=== PATIENT | female | born 1980 | race African-American/Black ===

== ENCOUNTER 2017-01-17 06:28 | Emergency (ER) | payer MEDICAID ==
[~2017-01-17] VITALS: Ht 165.1 cm; Wt 57.0 kg
[2017-01-17] MEDS ORDERED: KETOROLAC 60MG/2ML VIAL IM ONE (08:30)
[2017-01-17 08:55] VITALS: BP 132/70
== END 2017-01-17 08:57 | disposition home or self-care (01) ==
LOC: ER 06:36
DX: R51 Headache (principal); M79.602 Pain in left arm; J45.909 Unspecified asthma, uncomplicated; R56.9 Unspecified convulsions; F16.10 Hallucinogen abuse, uncomplicated; F14.10 Cocaine abuse, uncomplicated; F17.200 Nicotine dependence, unspecified, uncomplicated
CPT/HCPCS: 70450; 73090; 81025; 96372; 99284; J1885; Z7610

== ENCOUNTER 2017-03-12 21:49 | Emergency (ER) | payer MEDICAID ==
[~2017-03-12] VITALS: Ht 170.2 cm; Wt 61.0 kg
[2017-03-12] MEDS ORDERED: FOLIC ACID 1 MG, THIAMINE HCL 100 MG, MVI, ADULT NO.1 10 ML in DEXTROSE 5% WATER 1,000 ML IV ONE ×4 (22:15)
[2017-03-12 23:03] LABS: HEMATOCRIT. 26.1 % (36.0-48.0); HEMOGLOBIN. 8.1 g/dL (12.0-16.0); MEAN CORPUSCULAR HEMOGLOBIN 21.1 pg (28.0-32.0); MEAN CORPUSCULAR VOLUME 67.8 fL (81.0-99.0); MEAN PLATELET VOLUME 5.9 fl (7.4-10.4); PLATELET 304 x1000/uL (130-400); RED BLOOD CELL COUNT 3.85 mill/uL (4.2-5.4); RED CELL DISTRIBUTION WIDTH 17.7 % (11.6-14.6)
[2017-03-12 23:10] LABS: CARBON DIOXIDE 25 mEq/L (21-32); CHLORIDE 109 mEq/L (98-107); ETHANOL BLOOD 68 mg/dL
[2017-03-12 23:12] LABS: HCG SCREEN NEGATIVE
[2017-03-13 00:53] LABS: PLATELET ESTIMATE NORMAL
[2017-03-13] MEDS ORDERED: KETOROLAC 30MG/ML VIAL IV ONE (03:00)
[2017-03-13 03:16] LABS: *AMPHETAMINES SCREEN URINE NEGATIVE (NEGATIVE); *BARBITURATES SCREEN URINE NEGATIVE (NEGATIVE); *BENZODIAZEPINES SCREEN URINE NEGATIVE (NEGATIVE); CLARITY URINE CLEAR (CLEAR); COLOR URINE YELLOW (YELLOW); GLUCOSE URINE NEGATIVE (NEGATIVE); KETONES URINE NEGATIVE (NEGATIVE); LEUKOCYTE ESTERASE URINE NEGATIVE (NEGATIVE); METHADONE URINE SCREEN NEGATIVE (NEGATIVE); NITRITE URINE NEGATIVE (NEGATIVE); OCCULT BLOOD URINE NEGATIVE (NEGATIVE); OPIATES URINE SCREEN NEGATIVE (NEGATIVE); PROTEIN URINE NEGATIVE (NEGATIVE); SPECIFIC GRAVITY URINE 1.025 (1.005-1.030)
[2017-03-13 03:17] LABS: *COCAINE SCREEN URINE PRESUMTIVE POSITIVE (NEGATIVE)
[2017-03-13 03:18] LABS: CANNABINOID URINE SCREEN PRESUMTIVE POSITIVE (NEGATIVE); PHENCYCLIDINE URINE SCREEN PRESUMTIVE POSITIVE (NEGATIVE)
[2017-03-13 06:26] VITALS: BP 118/62
== END 2017-03-13 07:14 | disposition home or self-care (01) ==
LOC: ER 21:49
DX: F10.129 Alcohol abuse with intoxication, unspecified (principal); Y90.3 Blood alcohol level of 60-79 mg/100 ml; F14.10 Cocaine abuse, uncomplicated; F16.10 Hallucinogen abuse, uncomplicated; F12.10 Cannabis abuse, uncomplicated; E87.6 Hypokalemia; D50.9 Iron deficiency anemia, unspecified; F32.9 Major depressive disorder, single episode, unspecified; J45.909 Unspecified asthma, uncomplicated; G40.909 Epilepsy, unspecified, not intractable, without status epilepticus; R03.0 Elevated blood-pressure reading, without diagnosis of hypertension
CPT/HCPCS: 36415; 70450; 80053; 80305; 80307; 80329; 81003; 84703; 85025; 96365; 96366; 96375; 99285; G0482; J1885; J3411; J3490; J7030; J7070; Z7610

== ENCOUNTER 2017-03-13 08:06 | Emergency (ER) | payer MEDICAID ==
[~2017-03-13] VITALS: Ht 165.1 cm; Wt 55.0 kg
[2017-03-13 08:08] VITALS: BP 129/55
[2017-03-13] MEDS ORDERED: KETOROLAC 60MG/2ML VIAL IM ONE (09:00)
== END 2017-03-13 10:43 | disposition left against medical advice (07) ==
LOC: ER 08:30
DX: R07.81 Pleurodynia (principal); G40.909 Epilepsy, unspecified, not intractable, without status epilepticus; I10 Essential (primary) hypertension; J45.909 Unspecified asthma, uncomplicated; J44.9 Chronic obstructive pulmonary disease, unspecified; Z87.820 Personal history of traumatic brain injury; Z98.890 Other specified postprocedural states; F17.210 Nicotine dependence, cigarettes, uncomplicated; F15.10 Other stimulant abuse, uncomplicated; F12.10 Cannabis abuse, uncomplicated; F16.10 Hallucinogen abuse, uncomplicated; Y08.89XA Assault by other specified means, initial encounter
CPT/HCPCS: 99281

== ENCOUNTER 2018-02-13 18:00 | Emergency (ER) | payer MEDICAID ==
[~2018-02-13] VITALS: Ht 162.6 cm; Wt 52.0 kg
[~2018-02-13 18:00] MED LIST: ETOMIDATE 2MG/ML 10ML VIAL IV ONE; NORMAL SALINE 0.9% 10 ML SYR ONE; SUCCINYLCHOLINE CHLORIDE 200MG/10ML VIAL IV ONE
[2018-02-13] MEDS ORDERED: ZIPRASIDONE MESYLATE 20MG/VIAL IM ONE (19:15)
[2018-02-13 19:24] LABS: HEMATOCRIT. 27.6 % (36.0-48.0); HEMOGLOBIN. 8.5 g/dL (12.0-16.0); MEAN CORPUSCULAR HEMOGLOBIN 19.6 pg (28.0-32.0); MEAN CORPUSCULAR VOLUME 63.8 fL (81.0-99.0); MEAN PLATELET VOLUME 6.3 fl (7.4-10.4); PLATELET 533 x1000/uL (130-400); RED BLOOD CELL COUNT 4.33 mill/uL (4.2-5.4); RED CELL DISTRIBUTION WIDTH 19.1 % (11.6-14.6)
[2018-02-13 19:31] LABS: CHLORIDE 108 mEq/L (98-107)
[2018-02-13 19:35] LABS: ETHANOL BLOOD 52 mg/dL
[2018-02-13 19:40] LABS: HCG SCREEN NEGATIVE
[2018-02-13 19:58] LABS: PLATELET ESTIMATE INCREASED
[2018-02-13] MEDS ORDERED: TETRACAINE 0.5% OPHTH DROPS 4ML OP ONE (20:15)
[2018-02-13] MEDS ORDERED: FLUORESCEIN SODIUM 1MG/STRIP OP ONE (20:15)
[2018-02-13] MEDS ORDERED: SODIUM CHLORIDE 0.9% 1,000 ML IV ONE ×2 (20:31→22:07)
[2018-02-13] MEDS ORDERED: TETANUS, DIPHTHERIA, PERTUSSIS VAC/PF 0.5ML (>7YR OLD) IM ONE (20:45)
[2018-02-13] MEDS ORDERED: PROPOFOL 10MG/ML 100ML 100 ML IV SCH ×2 (22:15→23:15)
[2018-02-13] MEDS ORDERED: KETAMINE HCL 50 MG/ML 10ML IV ONE ×2 (22:30)
[2018-02-13] MEDS ORDERED: MIDAZOLAM HCL 2 MG/2 ML VIAL ONE (23:03)
[2018-02-13] MEDS ORDERED: MIDAZOLAM HCL 2 MG/2 ML VIAL IV ONE (23:15)
[2018-02-13] MEDS ORDERED: AMPICILLIN SOD/SULBACTAM NA 3 G in SODIUM CHLORIDE 0.9% 100 ML IV SCH (23:15)
[2018-02-14] MEDS ORDERED: MIDAZOLAM HCL 50 MG in DEXTROSE 5% WATER 40 ML IV ONE ×2 (00:30→00:45)
[2018-02-14] MEDS ORDERED: MIDAZOLAM HCL 2 MG/2 ML VIAL IV ONE (00:30)
[2018-02-14 00:54] LABS: BG BASE EXCESS -0.4 mmol/L (-2.0-2.0); BG DEOXYHEMOGLOBIN 3.6 % (0.0-5.0); BG FRACTION INSPIRED OXYGEN 100; BG HCO3 ACT 25.2 mmol/L (22.0-26.0); BG METHEMOGLOBIN 0.3 % (0.0-1.5); BG OXYGEN SATURATION 96.4 % (92.0-98.5); BG OXYHEMOGLOBIN 95.1 % (94.0-97.0); BG PCO2 45.8 mmHg (35.0-45.0); BG PH 7.358 (7.350-7.450); BG SAMPLE SITE LEFT RADIAL; BG TIDAL VOLUME(mL) 400 mL; BG TOTAL HEMOGLOBIN 9.1 g/dL (12.0-18.0); BG VENT MODE VENT - A/C; BG VENT RATE 14 set
[2018-02-14 01:30] VITALS: BP 134/91
[2018-02-14] MEDS ORDERED: PROPOFOL 10MG/ML 100ML 100 ML IV SCH (01:45)
== END 2018-02-14 01:55 | disposition short-term general hospital (02) ==
LOC: ER 18:10
DX: S02.40CA Maxillary fracture, right side, initial encounter for closed fracture (principal); S02.31XA Fracture of orbital floor, right side, initial encounter for closed fracture; J45.909 Unspecified asthma, uncomplicated; Z78.1 Physical restraint status; X58.XXXA Exposure to other specified factors, initial encounter; Y93.89 Activity, other specified; Y92.89 Other specified places as the place of occurrence of the external cause; Y99.8 Other external cause status
CPT/HCPCS: 31500; 36415; 36600; 70450; 70486; 71045; 72125; 80053; 80307; 80329; 82375; 82805; 84703; 85025; 90471; 90715; 96365; 96368; 96372; 96375; 96376; 99291; A4216; G0482; J0330; J2250; J2704; J3486; J3490; J7030; Z7610; 94002; J0295; J7050; J7060

== ENCOUNTER 2018-04-30 13:55 | Emergency (ER) | payer MEDICAID ==
[~2018-04-30] VITALS: Ht 167.6 cm; Wt 73.0 kg
[2018-04-30] MEDS ORDERED: HALOPERIDOL LACTATE 5MG/ML VIAL IM STA (14:17)
[2018-04-30] MEDS ORDERED: LORAZEPAM 2MG/ML CPJ IV STA (14:17)
[2018-04-30] MEDS ORDERED: DIPHENHYDRAMINE 50MG/ML VIAL IM STA (14:17)
[2018-04-30] MEDS ORDERED: LORAZEPAM 2MG/ML CPJ IM PRN (14:30)
[2018-04-30] MEDS ORDERED: LORAZEPAM 2MG/ML CPJ IV ONE (14:30)
[2018-04-30 15:44] LABS: CLARITY URINE CLEAR (CLEAR); COLOR URINE YELLOW (YELLOW); KETONES URINE NEGATIVE (NEGATIVE); LEUKOCYTE ESTERASE URINE 1+ (NEGATIVE); NITRITE URINE NEGATIVE (NEGATIVE); OCCULT BLOOD URINE NEGATIVE (NEGATIVE); PH URINE 5.5 (4.5-8.0); PROTEIN URINE TRACE (NEGATIVE); SPECIFIC GRAVITY URINE 1.022 (1.005-1.030)
[2018-04-30 16:14] LABS: *AMPHETAMINES SCREEN URINE NEGATIVE (NEGATIVE); *BARBITURATES SCREEN URINE NEGATIVE (NEGATIVE); *BENZODIAZEPINES SCREEN URINE NEGATIVE (NEGATIVE)
[2018-04-30 16:15] LABS: METHADONE URINE SCREEN NEGATIVE (NEGATIVE); OPIATES URINE SCREEN NEGATIVE (NEGATIVE)
[2018-04-30 16:20] LABS: *COCAINE SCREEN URINE PRESUMTIVE POSITIVE (NEGATIVE); CANNABINOID URINE SCREEN PRESUMTIVE POSITIVE (NEGATIVE); PHENCYCLIDINE URINE SCREEN PRESUMTIVE POSITIVE (NEGATIVE)
[2018-04-30 16:48] LABS: BASOPHILS % 0.7 % (0.0-2.0); EOSINOPHILS % 0.2 % (0.0-5.0); HEMATOCRIT. 29.2 % (36.0-48.0); HEMOGLOBIN. 8.9 g/dL (12.0-16.0); LYMPHOCYTES % 19.1 % (20.0-50.0); MEAN CORPUSCULAR HEMOGLOBIN 19.7 pg (28.0-32.0); MEAN PLATELET VOLUME 6.5 fl (7.4-10.4); MONOCYTES % 7.8 % (2.0-8.0); NEUTROPHILS % 72.2 % (40.0-76.0); PLATELET 373 x1000/uL (130-400); RED CELL DISTRIBUTION WIDTH 19.2 % (11.6-14.6)
[2018-04-30 16:55] LABS: CHLORIDE 103 mEq/L (98-107)
[2018-04-30 17:00] LABS: ETHANOL BLOOD < 10 mg/dL
[2018-04-30 17:18] LABS: PLATELET ESTIMATE NORMAL
[2018-04-30 22:18] VITALS: BP 114/65
== END 2018-04-30 23:06 | disposition home or self-care (01) ==
LOC: ER 14:12
DX: F16.129 Hallucinogen abuse with intoxication, unspecified (principal); F12.129 Cannabis abuse with intoxication, unspecified; F14.129 Cocaine abuse with intoxication, unspecified; J45.909 Unspecified asthma, uncomplicated; G40.909 Epilepsy, unspecified, not intractable, without status epilepticus; Z78.1 Physical restraint status; Z59.0 Homelessness
CPT/HCPCS: 36415; 70450; 80053; 80305; 80307; 80329; 81003; 81025; 82962; 85025; 96372; 99285; G0482; J1200; J1630; J2060

== ENCOUNTER 2018-05-10 22:11 | Emergency (ER) | payer MEDICAID ==
[~2018-05-10] VITALS: Ht 170.2 cm; Wt 59.0 kg
[2018-05-11 00:19] LABS: BASOPHILS % 0.4 % (0.0-2.0); EOSINOPHILS % 1.3 % (0.0-5.0); HEMATOCRIT. 25.3 % (36.0-48.0); HEMOGLOBIN. 7.8 g/dL (12.0-16.0); LYMPHOCYTES % 26.5 % (20.0-50.0); MEAN CORPUSCULAR HEMOGLOBIN 20.7 pg (28.0-32.0); MEAN CORPUSCULAR VOLUME 66.7 fL (81.0-99.0); MEAN PLATELET VOLUME 6.5 fl (7.4-10.4); MONOCYTES % 7.6 % (2.0-8.0); NEUTROPHILS % 64.2 % (40.0-76.0); PLATELET 351 x1000/uL (130-400); RED BLOOD CELL COUNT 3.79 mill/uL (4.2-5.4); RED CELL DISTRIBUTION WIDTH 20.7 % (11.6-14.6)
[2018-05-11 00:26] LABS: CHLORIDE 110 mEq/L (98-107)
[2018-05-11 00:32] LABS: ETHANOL BLOOD < 10 mg/dL
[2018-05-11 00:50] LABS: PLATELET ESTIMATE NORMAL
[2018-05-11 00:51] LABS: CLARITY URINE CLEAR (CLEAR); COLOR URINE YELLOW (YELLOW); KETONES URINE NEGATIVE (NEGATIVE); LEUKOCYTE ESTERASE URINE 1+ (NEGATIVE); NITRITE URINE NEGATIVE (NEGATIVE); OCCULT BLOOD URINE NEGATIVE (NEGATIVE); PROTEIN URINE NEGATIVE (NEGATIVE); SPECIFIC GRAVITY URINE 1.027 (1.005-1.030)
[2018-05-11 01:03] LABS: *BARBITURATES SCREEN URINE NEGATIVE (NEGATIVE); METHADONE URINE SCREEN NEGATIVE (NEGATIVE); OPIATES URINE SCREEN NEGATIVE (NEGATIVE)
[2018-05-11 01:22] LABS: *AMPHETAMINES SCREEN URINE PRESUMTIVE POSITIVE (NEGATIVE); *BENZODIAZEPINES SCREEN URINE PRESUMTIVE POSITIVE (NEGATIVE); *COCAINE SCREEN URINE PRESUMTIVE POSITIVE (NEGATIVE); PHENCYCLIDINE URINE SCREEN PRESUMTIVE POSITIVE (NEGATIVE)
[2018-05-11 01:23] LABS: CANNABINOID URINE SCREEN PRESUMTIVE POSITIVE (NEGATIVE)
[2018-05-11] MEDS ORDERED: LORAZEPAM 2MG/ML CPJ IM ONE (04:45)
[2018-05-11] MEDS ORDERED: DIPHENHYDRAMINE 50MG/ML VIAL IM ONE (05:00)
[2018-05-11 07:53] LABS: HCG SCREEN NEGATIVE
[2018-05-11 09:50] VITALS: BP 126/68
== END 2018-05-11 10:43 | disposition home or self-care (01) ==
LOC: ER 22:24
DX: F19.10 Other psychoactive substance abuse, uncomplicated (principal); R94.31 Abnormal electrocardiogram [ECG] [EKG]; F10.129 Alcohol abuse with intoxication, unspecified; Y90.0 Blood alcohol level of less than 20 mg/100 ml
CPT/HCPCS: 36415; 80053; 80305; 80307; 80329; 81003; 84703; 85025; 93005; 96372; 99285; G0482; J2060; Z7610; 51701

== ENCOUNTER 2018-05-11 10:57 | Emergency (ER) | payer MEDICAID ==
[~2018-05-11] VITALS: Ht 157.5 cm; Wt 60.0 kg
[2018-05-11 11:05] VITALS: BP 123/51
== END 2018-05-11 18:34 | disposition home or self-care (01) ==
LOC: ER 11:23
DX: F19.10 Other psychoactive substance abuse, uncomplicated (principal); F17.200 Nicotine dependence, unspecified, uncomplicated; Z00.00 Encounter for general adult medical examination without abnormal findings
CPT/HCPCS: 99283

== ENCOUNTER 2019-10-05 00:22 | Emergency (ER) | payer MEDICAID ==
[~2019-10-05] VITALS: Ht 167.6 cm; Wt 54.0 kg
[2019-10-05] MEDS ORDERED: OLANZAPINE 10 MG/VIAL IM ONE (01:30)
[2019-10-05 01:49] VITALS: BP 127/83
== END 2019-10-05 01:53 | disposition home or self-care (01) ==
LOC: EDUNIT# 00:22 → ER 00:22
DX: Z02.89 Encounter for other administrative examinations (principal); T59.3X3A Toxic effect of lacrimogenic gas, assault, initial encounter; R20.8 Other disturbances of skin sensation; F20.9 Schizophrenia, unspecified; Y35.893A Legal intervention involving other specified means, suspect injured, initial encounter; Y93.89 Activity, other specified; Y92.410 Unspecified street and highway as the place of occurrence of the external cause; Z86.59 Personal history of other mental and behavioral disorders; R03.0 Elevated blood-pressure reading, without diagnosis of hypertension
CPT/HCPCS: 96372; 99283; J3490